=== PATIENT | male | born 1985 | race Two or more races ===

== ENCOUNTER 2023-03-10 21:16 | Inpatient (IN) | payer OTHER ==
[2023-03-10 21:40] VITALS: BMI 30.4
[2023-03-10] MEDS ORDERED: ACETAMINOPHEN 325 MG TABLET (FP) PO PRN (22:32)
[2023-03-10] MEDS ORDERED: METHOCARBAMOL 500 MG TABLET PO PRN (22:32)
[2023-03-10] MEDS ORDERED: LOPERAMIDE HCL 2 MG CAPSULE PO PRN (22:32)
[2023-03-10] MEDS ORDERED: IBUPROFEN 600 MG TABLET (FP) PO PRN (22:32)
[2023-03-10] MEDS ORDERED: MAG HYDROX/AL HYDROX/SIMETH 30 ML UNIT-DOSE CUP PO PRN (22:32)
[2023-03-10] MEDS ORDERED: MAGNESIUM HYDROX 2400MG/30ML ORAL SUSPENSION 30 ML CUP PO PRN (22:32)
[2023-03-10] MEDS ORDERED: P-EPHED 60MG/TRIPROLIDI 2.5MG TABLET PO PRN (22:32)
[2023-03-10] MEDS ORDERED: ONDANSETRON *ODT* 4 MG TABLET SL PRN (22:32)
[2023-03-10] MEDS ORDERED: guaiFENesin 600 MG TABLET.ER (FP) PO PRN (22:32)
[2023-03-10] MEDS ORDERED: IBUPROFEN 400 MG TABLET (FP) PO PRN (22:32)
[2023-03-10] MEDS ORDERED: DICYCLOMINE HCL 10 MG CAPSULE PO PRN (22:32)
[2023-03-10] MEDS ORDERED: hydrOXYzine PAMOATE 25 MG CAPSULE (FP) PO PRN (22:32)
[2023-03-10] MEDS ORDERED: BENZONATATE 200 MG CAPSULE PO PRN (22:32)
[2023-03-10] MEDS ORDERED: BENZOCAINE/MENTHOL (CHLORASEPTIC ) LOZENGE MM PRN (22:32)
[2023-03-10] MEDS ORDERED: POLYETHYLENE GLYCOL (HEALTHYLAX) 3350 17 GM PACKET PO PRN (22:32)
[2023-03-10] MEDS ORDERED: BISMUTH SUBSALICYLATE 524 MG/30 ML PO PRN (22:32)
[2023-03-10] MEDS ORDERED: chlordiazePOXIDE HCL 25 MG CAPSULE PO PRN (22:33)
[2023-03-10] MEDS ORDERED: propRANOLol HCL 10 MG TABLET PO ONE (22:55)
[2023-03-11 01:11] VITALS: TEMP 97.7
[2023-03-11] MEDS: chlordiazePOXIDE HCL 25 MG CAPSULE PO SCH ×5 (01:11→10:33)
[2023-03-11 06:33] VITALS: BP 127/85; PULSE 95; RESP 16
[2023-03-11] MEDS ORDERED: PRENATAL VITAMINS W/ FOLIC ACID TABLET (FP) PO SCH (10:00)
[2023-03-11 11:37] LABS: HEMOGLOBIN 14.4 GM/dL (11.7-16.9); MCH 28.2 pg (25.7-33.7); MCHC 34.3 g/dl (32.0-35.9); MEAN CELL VOLUME 82.3 fl (80-96); MEAN PLT VOLUME 8.9 fl (7.5-11.1); PLATELET COUNT 318 10^3/uL (134-434); RDW 15.5 % (11.9-15.9); WHITE BLOOD COUNT 8.4 K/mm3 (4.0-10.0)
[2023-03-11 12:11] LABS: CHLORIDE 100 mmol/L (98-107); POTASSIUM 3.6 mmol/L (3.5-5.1); SODIUM 138 mmol/L (136-145)
[2023-03-11 12:23] LABS: CALCIUM 9.2 mg/dL (8.5-10.1)
[2023-03-11 12:24] LABS: ANION GAP 10 mmol/L (4-13); CO2 29 mmol/L (21-32); GLUCOSE,RANDOM 120 mg/dL (74-106)
[2023-03-11 12:25] LABS: BLOOD UREA NITROGEN 6.3 mg/dL (7-18)
[2023-03-11 12:27] LABS: SGOT/AST 40 U/L (15-37); SGPT/ALT 45 U/L (13-61)
[2023-03-11 12:28] LABS: BILIRUBIN,TOTAL 1.1 mg/dL (0.2-1)
[2023-03-11 12:29] LABS: ALK PHOS 115 U/L (45-117); TOT PROT 8.2 g/dl (6.4-8.2)
[2023-03-11] MEDS ORDERED: THIAMINE HCL 100 MG TABLET (FP) PO SCH (22:00)
[2023-03-11] MEDS ORDERED: MELATONIN 5 MG TABLETS PO SCH (22:00)
[2023-03-12] MEDS ORDERED: chlordiazePOXIDE HCL 25 MG CAPSULE PO SCH (05:00)
[2023-03-13] MEDS ORDERED: chlordiazePOXIDE HCL 10 MG CAPSULE PO PRN
[2023-03-13] MEDS ORDERED: chlordiazePOXIDE HCL 10 MG CAPSULE PO SCH (05:00)
[2023-03-14] MEDS ORDERED: chlordiazePOXIDE HCL 10 MG CAPSULE PO SCH (05:00)
[2023-03-15] MEDS ORDERED: chlordiazePOXIDE HCL 10 MG CAPSULE PO ONE (05:00)
== END 2023-03-11 09:00 | disposition left against medical advice (07) | DRG 770 ==
LOC: YASAS 21:16 → Y6N 23:12
PROVIDERS: ADMIT Allergy & Immunology; ATTEND Surgery
PROC: HZ2ZZZZ Detoxification Services for Substance Abuse Treatment (ICD-10-PCS; principal; 2023-03-10)
DX: F10.230 Alcohol dependence with withdrawal, uncomplicated (principal)
CPT/HCPCS: 36415; 80053; 80307; 85027; 86780; 87635